=== PATIENT | female | born 1935 | race Caucasian/White ===

== ENCOUNTER 2020-01-22 09:06 | Outpatient (CLI) | payer BC, OTHER ==
[2020-01-22] MEDS ORDERED: BARIUM SULFATE 135 ML SUSP.RECON (E-Z-HD) PO ONE (09:53)
== END 2020-01-22 20:38 | disposition home or self-care (01) ==
LOC: SRD 09:06
PROVIDERS: ATTEND Otolaryngology Plastic Surgery within the Head & Neck
DX: K21.9 Gastro-esophageal reflux disease without esophagitis (principal)
CPT/HCPCS: 74220-TC

== ENCOUNTER 2023-06-29 11:54 | Emergency (ER) | payer BC ==
[~2023-06-29] VITALS: Ht 160 cm; Wt 62.1 kg
[2023-06-29 12:22] VITALS: BP_SYST 164; PULSE 81; RESP 16; TEMP 98.4; O2SAT 99
[2023-06-29 14:21] VITALS: BP_SYST 164; PULSE 81; RESP 16; TEMP 98.4; O2SAT 99
== END 2023-06-29 13:30 | disposition left against medical advice (07) ==
LOC: SED 11:54
DX: M25.551 Pain in right hip (principal); I10 Essential (primary) hypertension; Z79.899 Other long term (current) drug therapy
CPT/HCPCS: 72192-TC; 99284